=== PATIENT | male | born 1950 | race Caucasian/White ===

== ENCOUNTER → 2016-02-09 09:05 | Day surgery (SDC) | payer BC ==
[~2016-02-09 09:05] MED LIST: Buffered Lidocaine 1% SYR 3ML* 3 ML/SYR SYRINGE INTRADERM ONE; Buffered Lidocaine 1% SYR 3ML* 3 ML/SYR SYRINGE ONE; Bupivacaine 0.5% W/EPI SDV* 30 ML VIAL ONE; Dexamethasone IV* 4 MG/ML 1 ML (4 MG) IV SLOW PU ONE; Dexamethasone IV* 4 MG/ML 1 ML (4 MG) ONE; DiMENhydriNATE IV* 50 MG/ML VIAL IV PUSH PRN; Famotidine IV* 10 MG/ML 2 ML (20 mg) IV ONE; Famotidine IV* 10 MG/ML 2 ML (20 mg) ONE; HYDROmorphone INJ* 1 MG/ML CARPUJECT SYRINGE IV PRN; Ketorolac INJ* 30 MG/ML 1 ML VIAL ONE; Lidocaine 1% INJ* 10 MG/ML 30 ML SDV ONE; Lidocaine 2% MPF* 2 ML VIAL ONE; Midazolam* 1 MG/ML 5 ML VIAL (5 MG) ONE; Ondansetron INJ* 2 MG/ML VIAL IV PRN; Ondansetron INJ* 2 MG/ML VIAL ONE; PROCHLORPERAZINE INJ 5 MG/ML 2 ML VIAL IV PRN; Propofol* 10 MG/ML 20 ML BTL IV PUSH ONE; ceFAZolin 2 GM PREMIX (*) 2 GM/50 ML BAG IVPB ONE; fentaNYL* 50 MCG/ML 2 ML VIAL (100 MCG VIAL) ONE; oxyCODONE/Acetamin 5/325 MG* TAB ONE; oxyCODONE/Acetamin 5/325 MG* TAB PO PRN
--- NOTE | 2016-02-09 13:21 | SURGPN ---
Brief Operative Note - Surgery Procedures: Procedures Pre-OP Diagnoses: umbilical hernia Post-op Diagnosis: same Procedure: open umbilical hernia repair with mesh Surgeon: Amaya Asst: none Anethesia: GA with LMA Archer EBL: minimal IVF: minimal Specimen: none Drains: none
[2016-02-09] MEDS: fentaNYL* 50 MCG/ML 2 ML VIAL (100 MCG VIAL) IV PRN ×2 (13:55→14:24)
[2016-02-09 15:00] VITALS: BP 120/71
--- NOTE | 2016-02-10 11:29 | OP ---
OPERATIVE REPORT: DATE OF OPERATION: 02/09/16 - SDS DATE OF : 54 SURGEON: Derek Conde MD TUB PULLER: None. ANESTHESIOLOGIST: Dr. Archer. ANESTHESIA: General anesthesia with LMA. PRE-OP DIAGNOSIS: Umbilical hernia. POST-OP DIAGNOSIS: Umbilical hernia. OPERATIVE PROCEDURE: Umbilical hernia repair with mesh. ESTIMATED BLOOD LOSS: Minimal blood loss. FLUIDS: Minimal crystalloid fluid given. SPECIMEN: None. DRAINS: None. COUNTS: Lap, pad count and instrument count correct at the end of the procedure. DESCRIPTION OF PROCEDURE: The patient was identified in the preoperative area, marked and taken to the operating room, placed on the operating table in supine position. General anesthesia was then delivered. Sequential devices were placed on bilateral lower extremities. Preoperative antibiotics were given. The patient's abdomen was prepped and draped in a standard surgical fashion. Time-out was performed. An infraumbilical incision was made, this was deepened down to the anterior fascia interiorly and a window was made around the umbilical skin and hernia sac. Matilda drain was applied to this and a sharp dissection was carried out to remove the skin from the hernia sac. The hernia sac was opened up and entered into preperitoneal plane. The hernia defect appeared to be just over 1 cm. The preperitoneal plane was opened up with blunt dissection to encompass a 4.3-cm Ventralex mesh. This was then inserted, allowed to open up, and tails brought out through the defect. The edges were sutured with 0 Polysorb sutures and then the tails were sutured to the anterior fascia superiorly and inferiorly. The tails were then clipped and the wound was then irrigated. Hemostasis was excellent. The umbilical skin was then tacked down with 2-0 Polysorb suture and the skin was closed with interrupted 3-0 Polysorb sutures at the subcutaneous level and a 4-0 Monocryl subcuticular running suture followed by Steri-Strips and a sterile dressing. The patient tolerated the procedure well and was woken in the OR, and transferred to the PACU in stable condition. CC: Dr. Ashley Romero; [facility]* [id number]/[facility] #: [id number] MTDD
== END | disposition home or self-care (01) ==
LOC: OR 09:05
PROVIDERS: ATTEND Surgery
DX: K42.9 Umbilical hernia without obstruction or gangrene (principal); I10 Essential (primary) hypertension; F41.9 Anxiety disorder, unspecified; F40.240 Claustrophobia; Z88.8 Allergy status to other drugs, medicaments and biological substances; N04.9 Nephrotic syndrome with unspecified morphologic changes
CPT/HCPCS: A9270-GY; C1781; J0690; J1100; J1885; J2250; J2405; J2704; J3010

== ENCOUNTER 2016-06-07 16:04 | Emergency (ER) | payer BC ==
[2016-06-07 16:29] VITALS: BP 157/82
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
[2016-06-07] MEDS ORDERED: cefTRIAXone VIAL(*) 1,000 MG VIAL IM ONE (17:43)
[2016-06-07] MEDS ORDERED: Tetan/Diph/Pertus SYR(Tdap)* 0.5 ML SYR(BOOSTRIX) use SYR IM ONE (17:50)
[2016-06-07] MEDS ORDERED: Lidocaine 1% MPF* 2 ML VIAL INJ ONE (17:50)
== END 2016-06-07 18:38 | disposition home or self-care (01) ==
LOC: UCEAST 16:04
DX: L03.116 Cellulitis of left lower limb (principal); Z23 Encounter for immunization; I10 Essential (primary) hypertension; Z86.718 Personal history of other venous thrombosis and embolism
CPT/HCPCS: 90471; 90715; 96372; 99212; G0463; J0696

== ENCOUNTER 2016-06-09 13:32 | Emergency (ER) | payer BC ==
[2016-06-09 13:42] VITALS: BP 146/66
--- NOTE | 2016-06-09 15:43 | RAD ---
HISTORY: Left leg swelling and redness COMPARISONS: March 22, 2011 TECHNIQUE: Multiple transverse and longitudinal ultrasound images were obtained of the left lower extremity from the level of the common femoral vein inferiorly through to the infrapopliteal veins using grayscale, color Doppler, and spectral Doppler imaging with and without compression and with augmentation. Comparison images were obtained of the contralateral common femoral vein. FINDINGS: VEINS: The venous system of the left lower extremity is compressible throughout its course, with normal flow on color Doppler imaging and normal response to augmentation on spectral Doppler imaging. SOFT TISSUES: Unremarkable. OTHER FINDINGS: None. IMPRESSION: NO LEFT LOWER EXTREMITY DEEP VEIN THROMBOSIS
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
== END 2016-06-09 17:13 | disposition home or self-care (01) ==
LOC: ED 13:32
DX: L03.116 Cellulitis of left lower limb (principal); M79.605 Pain in left leg; K51.90 Ulcerative colitis, unspecified, without complications
CPT/HCPCS: 99281